=== PATIENT | female | born 1990 | race Caucasian/White ===

== ENCOUNTER 2021-05-09 09:06 | Emergency (ER) | payer SELFPAY ==
--- NOTE | ~2021-05-09 | XR_ITS ---
EXAMINATION: XR chest 1V portable 05/09/2021 10:23 INDICATION: Cough PROCEDURE: AP portable chest COMPARISON: No prior studies for comparison. FINDINGS: The lungs are clear. The cardiomediastinal silhouette is within normal limits. There are no pleural effusions. There is no pneumothorax suspected. IMPRESSION: 1: NO ACUTE CARDIOPULMONARY DISEASE. Reviewed, dictated and finalized at location A. NET C DEVELOPER
--- NOTE | ~2021-05-09 | CT_ITS ---
EXAMINATION: CTA chest PE protocol DATE: 05/09/2021 12:11 PATIENT [facility] INDICATION: Cough and congestion. Positive d-dimer. Hemoptysis. TECHNIQUE: Computed tomographic angiography (CTA) of the chest was performed with 100 mL Omnipaque-35 0 intravenous contrast. The dose-length product was 1030.96 mGy-cm. Maximum intensity projection 3D-r econstructions of the aorta and other arteries were constructed by the technologist on a separate wor kstation. Automated exposure control and iterative reconstruction technique were employed. COMPARISON: Chest x-ray dated 05/09/2021. FINDINGS: Heart size is normal. No significant pleural or pericardial effusion. Study is technically adequate without evidence for central pulmonary embolism. Evaluation of peripheral pulmonary arteries limited by contrast bolus and motion. No significant pleural or pericardial effusion. No thoracic ly mphadenopathy. No evidence for aortic aneurysm or dissection. Heart size normal. The upper abdomen is unremarkable. There is a small 3 mm left lower lobe nodule near the fissure, likely benign. No focal airspace consolidation. No pneumothorax. No endobronchial lesions. IMPRESSION: 1. No acute cardiopulmonary disease. No evidence for large central pulmonary embolism. Reviewed, dictated and finalized at location A. ENT [facility] IMPRESSION: 1. No acute cardiopulmonary disease. No evidence for large central pulmonary em bolism.
[2021-05-09 09:10] VITALS: BP 156/94; PULSE 110; RESP 16; TEMP 36.4; O2SAT 99
[2021-05-09 09:44] VITALS: O2SAT 100
[2021-05-09 10:23] VITALS: BP 141/101; PULSE 100; RESP 14; O2SAT 97
--- NOTE | 2021-05-09 10:36 | ED.URI ---
HPI - URI/Sore Throat General Chief Complaint: Upper Respiratory Infection Stated Complaint: BLOOD TINGED SPUTUM Time Seen by Provider: 05/09/21 10:11 Source: patient Mode of arrival: ambulatory Limitations: no limitations History of Present Illness HPI Narrative: This is a 30 year old female that presents to the ER for blood tinged sputum today. Reports she has had cough, congestion, fever, and sore throat x 6 days. Reports today she noted her sputum looked like it had some blood in it. Reports she was seen at Urgent care earlier this week and started on Amoxicillin. Denies chest pain or shortness of breath. Related Data Allergies Allergy/AdvReac Type Severity Reaction Status Date / Time No Known Allergies Allergy Verified 05/09/21 09:21 Review of Systems Review of Systems: CONSTITUTIONAL: Denies fever ENT: Reports congestion, sore throat CARDIOVASCULAR: Denies chest pain, or edema. RESPIRATORY: Reports cough. Denies dyspnea. All systems reviewed & are unremarkable except as noted in HPI and below PMFSH Past Medical History Medical History (Updated 05/09/21 @ 12:55 by Roxane Canada PA-C) History of hypertension Social History Social History (Updated 05/09/21 @ 10:39 by Roxane Canada PA-C) Smoking status: Never smoker Exam Narrative: GENERAL: Well-appearing, well-nourished, and in no acute distress. HEAD: Normocephalic, atraumatic. EYES: EOMI. ENT: Nares clear, no rhinorrhea or epistaxis. Mucous membranes moist. Oropharynx with mild tonsillar hypertrophy, no exudate or other lesions. Bilateral TMs pearly [place] non-bulging NECK: Supple. No adenopathy or masses. CHEST: Clear to auscultation. No respiratory distress. No wheezes rales or rhonchi HEART: Regular rate and rhythm. No murmur heard. Normal peripheral pulses. EXTREMITIES: Normal range of motion. No edema. SKIN: Warm, dry, no rash. NEURO: No focal deficits. Alert and oriented x3. PSYCH: Normal mood and affect Course Vital Signs Vital signs: Vital Signs Temperature 97.6 F 05/09/21 09:10 Pulse Rate 110 H 05/09/21 09:10 Respiratory Rate 16 05/09/21 09:10 Blood Pressure 156/94 H 05/09/21 09:10 Pulse Oximetry 99 05/09/21 09:10 Temperature 97.6 F 05/09/21 09:10 Pulse Rate 78 05/09/21 12:08 Respiratory Rate 18 05/09/21 12:08 Blood Pressure 124/78 05/09/21 12:08 Pulse Oximetry 99 05/09/21 12:08 MDM - URI/Sore Throat MDM Narrative Medical decision making narrative: Patient presents to the emergency department for hemoptysis. She is afebrile and nontoxic-appearing. Oxygen saturation has remained normal on room air. Heart rate noted to be elevated initially, this responded to IV fluid administration. CBC with mild leukocytosis to 11.1. Metabolic panel without concerning findings. Bedside test is negative. Influenza screen is negative. SARS-CoV-2 was sent. D-dimer was elevated, so CTA of the chest was obtained. This was without evidence of PE or acute cardiopulmonary abnormality. Patient was instructed on continued care of respiratory infection. She is stable and felt appropriate for further outpatient evaluation. She is to follow-up with primary care doctor. She was given warnings to return to the ER Lab Data Attestation: I reviewed the patient's lab results. Result diagrams: 05/09/21 10:45 05/09/21 10:45 Labs: Lab Results 05/09/21 05/09/21 05/09/21 Range/Units 10:22 10:45 10:45 WBC 11.1 H (4.5-10.0) K/mm3 RBC 4.55 (4.2-5.4) M/mm3 Hgb 13.0 (12.0-15.0) g/dL Hct 40.2 (37.0-47.0) % MCV 88.4 (80-100) fl MCH 28.6 (26-34) pg MCHC 32.3 (32-36) g/dl RDW 13.8 (11.5-14.5) % Plt Count 385 H (150-375) k/mm3 MPV 8.4 (7.4-10.4) fl Immature Gran % (Auto) 0.6 H (0-0.5) % Neut % (Auto) 67.0 (45.5-73.1) % Lymph % (Auto) 23.9 (18.3-44.2) % [place] % (Auto) 6.2 (2.6-8.5) % Eos % (Auto) 1.5 (0-4.4) % Ba
[2021-05-09 10:55] LABS: Basophils Absolute Auto 0.1 K/mm3 (0.0-0.1); Basophils Percent Auto 0.8 % (0.2-1.2); Eosinophils Absolute Auto 0.2 K/mm3 (0-0.3); Eosinophils Percent Auto 1.5 % (0-4.4); Hematocrit 40.2 % (37.0-47.0); Immature Granulocyte Absolute 0.07 K/mm3 (0.00-0.031); Immature Granulocyte Percent A 0.6 % (0-0.5); Lymphocytes Absolute Auto 2.64 K/mm3 (0.9-3.2); Lymphocytes Percent Auto 23.9 % (18.3-44.2); Mean Corpuscular HGB Conc 32.3 g/dl (32-36); Mean Corpuscular Hemoglobin 28.6 pg (26-34); Mean Corpuscular Volume 88.4 fl (80-100); Mean Platelet Volume 8.4 fl (7.4-10.4); Monocytes Absolute Auto 0.7 K/mm3 (0.1-0.6); Monocytes Percent Auto 6.2 % (2.6-8.5); Neutrophils Absolute Auto 7.4 K/mm3 (1.3-6.7); Platelet Count Result 385 k/mm3 (150-375); Red Blood Count 4.55 M/mm3 (4.2-5.4); Red Cell Distribution Width 13.8 % (11.5-14.5); White Blood Count 11.1 K/mm3 (4.5-10.0)
[2021-05-09 11:03] LABS: Anion Gap 14 mmol/L (8-16); Blood Urea Nitrogen 5 mg/dL (7-17); Calcium 9.7 mg/dL (8.4-10.2); Carbon Dioxide 26 mmol/L (22-30); Chloride 100 mmol/L (98-107); Estimated CRCL calculation 124 ml/min; Estimated Glomerular Filt Rate > 60; Glucose 129 mg/dL (65-110); Potassium 3.6 mmol/L (3.4-5.0); Sodium 140 mmol/L (137-145)
[2021-05-09 11:04] LABS: Prothrombin Time 13.1 Seconds (11.1-14.7)
[2021-05-09 11:05] LABS: Partial Thromboplastin Time 36.6 SECONDS (22.3-36.8)
[2021-05-09 11:07] LABS: D Dimer 0.67 ug/mL (<0.48)
[2021-05-09 11:09] LABS: Atypical Lymphocytes Present
[2021-05-09] MEDS: SODIUM CHLORIDE 0.9% IV 500 ML 999 ML IV CONT (12:05)
[2021-05-09 12:08] VITALS: BP 124/78; PULSE 78; RESP 18; O2SAT 99
[2021-05-09 13:10] VITALS: BP 132/78; PULSE 78; RESP 18; O2SAT 99
[2021-05-10 13:26] LABS: SARS-CoV-2 RNA PCR Negative
== END 2021-05-09 13:17 | disposition home or self-care (01) ==
PROVIDERS: Physician Assistant; Emergency Provider Emergency Medicine
DX: J40 Bronchitis, not specified as acute or chronic (principal); Z20.822 Contact with and (suspected) exposure to COVID-19; I10 Essential (primary) hypertension
CPT/HCPCS: 36415; 71045; 71275; 80048; 81025; 85025; 85380; 85610; 85730; 87804; 96360; 99284; C9803; J7040; Q9967; U0003; U0005